=== PATIENT | female | born 1995 | race Caucasian/White ===

== ENCOUNTER 2018-02-24 21:20 | Emergency (ER) | payer MEDICAID ==
[~2018-02-24] VITALS: Ht 172.7 cm; Wt 93.9 kg
[2018-02-24 21:35] VITALS: Ht 172.7 cm; Wt 93.9 kg
[2018-02-24 22:15] VITALS: BP 135/90
== END 2018-02-24 22:15 | disposition home or self-care (01) ==
LOC: ED 21:20
DX: L03.115 Cellulitis of right lower limb (principal); W57.XXXA Bitten or stung by nonvenomous insect and other nonvenomous arthropods, initial encounter; Y93.89 Activity, other specified; Y92.89 Other specified places as the place of occurrence of the external cause; Y99.8 Other external cause status